=== PATIENT | male | born 1980 | race American Indian/Alaskan Native ===

== ENCOUNTER 2020-12-02 19:41 | Emergency (ER) | payer BC ==
[2020-12-02] MEDS ORDERED: hydrALAZINE 25 MG TAB PO ONE (20:27)
[2020-12-02] MEDS ORDERED: BUTALB/ACETAMINOPHEN/CAFFEINE TAB PO ONE (20:27)
--- NOTE | 2020-12-02 20:34 | Emergency Department Report ---
ED General Adult HPI - General Stated complaint: BLOOD PRESSURE HIGH PUI?: No Source: patient Mode of arrival: Ambulatory Limitations: No Limitations - History of Present Illness Initial comments: Patient is a 40-year-old -[place] male with a history of obesity, who presents to the ED with complaint of acute onset persistent headache, intermittent lightheadedness and elevated blood pressure for the last 2 days. Patient states that he has never been diagnosed with hypertension but when he started having the symptoms his sister advised him to check his blood pressure which was significantly high. Patient states that his blood pressure was over 200 systolic. Patient denies chest pain, shortness of breath, dizziness, syncope, palpitations, numbness and tingling or weakness of upper extremities bilaterally, diaphoresis, nausea and vomiting, cough, abdominal pain, neck pain, facial numbness and tingling, change in vision, change in speech, loss of consciousness or upper and lower extremity weakness. MD Complaint: elevated blood pressure; lightheadedness and headache -: Sudden, days(s) (2) Location: head Radiation: non-radiation Severity scale (0 -10): 7 Quality: aching, sharp Consistency: constant Improves with: none Worsens with: none Associated Symptoms: denies other symptoms, headaches, malaise. denies: confusion, chest pain, cough, diaphoresis, fever/chills, loss of appetite, nausea/vomiting, rash, seizure, shortness of breath, syncope, weakness, other Treatments Prior to Arrival: none - Related Data Previous Rx's Medication Instructions Recorded Last Taken Type Ibuprofen [Motrin] 800 mg PO Q8HR PRN #30 tablet 12/02/20 Unknown Rx Lisinopril/Hydrochlorothiazide 1 tab PO QDAY #30 tab 12/02/20 Unknown Rx [Zestoretic 20-25 mg] Allergies Allergy/AdvReac Type Severity Reaction Status Date / Time No Known Allergies Allergy Unverified 12/02/20 20:30 ED Review of Systems ROS: Stated complaint: BLOOD PRESSURE HIGH Other details as noted in HPI Constitutional: other (Elevated blood pressure). denies: chills, fever Eyes: denies: eye pain, eye discharge, vision change ENT: denies: ear pain, throat pain Respiratory: denies: cough, shortness of breath, wheezing Cardiovascular: denies: chest pain, palpitations Endocrine: no symptoms reported Gastrointestinal: denies: abdominal pain, nausea, vomiting, diarrhea Genitourinary: denies: urgency, dysuria Musculoskeletal: denies: back pain, joint swelling, arthralgia Skin: denies: rash, lesions Neurological: headache, other (lightheadedness). denies: weakness, paresthesias Psychiatric: denies: anxiety, depression Hematological/Lymphatic: denies: easy bleeding, easy bruising ED Past Medical Hx - Medications Home Medications: Home Medications Medication Instructions Recorded Confirmed Last Taken Type Ibuprofen [Motrin] 800 mg PO Q8HR PRN #30 tablet 12/02/20 Unknown Rx Lisinopril/Hydrochlorothiazide 1 tab PO QDAY #30 tab 12/02/20 Unknown Rx [Zestoretic 20-25 mg] ED Physical Exam - General General appearance: alert, in no apparent distress - Head Head exam: Present: atraumatic, normocephalic, normal inspection - Eye Eye exam: Present: normal appearance, PERRL, EOMI Pupils: Present: normal accommodation - ENT ENT exam: Present: normal exam, normal orophraynx, mucous membranes moist, TM's normal bilaterally, normal external ear exam - Neck Neck exam: Present: normal inspection, full ROM - Respiratory Respiratory exam: Present: normal lung sounds bilaterally. Absent: respiratory distress, wheezes, rales, rhonchi, stridor, chest wall tenderness, decreased breath sounds, prolonged expiratory - Cardiovascular Cardiovascular Exam: Present: regular rate, normal rhythm, normal heart sounds. Absent: systolic murmur, diastolic murmur, rubs, gallop - GI/Abdominal GI/Abdominal exam: Present: soft, normal bowel sounds. Absent: distended, tenderness, guarding, hyperactive bowel sounds, hypoactive bowel sounds, organomegaly - Extremities Exam Extremities exam: Present: normal inspection, full ROM, normal capillary refill - Back Exam Back exam: Present: normal inspection, full ROM. Absent: tenderness, CVA tender ness (R), CVA tenderness (L), muscle spasm, paraspinal tenderness, vertebral tenderness - Neurological Exam Neurological exam: Present: alert, oriented X3, CN II-XII intact, normal gait, reflexes normal - Psychiatric Psychiatric exam: Present: normal affect, normal mood - Skin Skin exam: Present: warm, dry, intact, normal color. Absent: rash ED Course Vital Signs 12/02/20 12/02/2021 20:16 21:15 21:16 Temperature 99.1 F Pulse Rate 77 77 Respiratory 18 20 Rate Blood Pressure 194/122 194/122 Blood Pressure [Right] O2 Sat by Pulse 95 Oximetry 12/02/20 22:55 Temperature Pulse Rate 76 Respiratory 16 Rate Blood Pressure Blood Pressure 167/102 [Right] O2 Sat by Pulse 97 Oximetry ED Medical Decision Making - Lab Data Result diagrams: 12/02/20 20:52 12/02/20 20:52 - Radiology Data Radiology results: report reviewed, image reviewed Findings [facility] [address] [place] [address] XRay Report Signed Patient: BOY TAY MR#: [id number] : 1980 Acct:[id number] Age/Sex: 40 / M ADM Date: 12/02/20 Loc: ED Attending Dr: Ordering Physician: PRECIOUS MORGAN Date of Service: 12/02/20 Procedure(s): XR chest 1V ap Accession Number(s): [id number] cc: PRECIOUS MORGAN Fluoro Time In Minutes: CHEST 1 VIEW 12/02/2020 8:48 PM INDICATION / CLINICAL INFORMATION: Lightheadedness, elevated BP. COMPARISON: None available. FINDINGS: SUPPORT DEVICES: None. HEART / MEDIASTINUM: No significant abnormality. LUNGS / PLEURA: No significant pulmonary or pleural abnormality. No pneumothorax. ADDITIONAL FINDINGS: No significant additional findings. IMPRESSION: No acute cardiopulmonary abnormality. Signer Name: Karolyn Vinson MD Signed: 12/02/2020 8:59 PM Workstation Name: [id number] Transcribed By: SS Dictated By: KAROLYN VINSON Electronically Authenticated By: KAROLYN VINSON Signed Date/Time: 12/02/202058 DD/ 58 TD/TT: Findings [facility] [address] [place] [address] Cat Scan Report Signed Patient: BOY TAY MR#: [id number] : 1980 Acct:[id number] Age/Sex: 40 / M ADM Date: 12/02/20 Loc: ED Attending Dr: Ordering Physician: PRECIOUS MORGAN Date of Service: 12/02/20 Procedure(s): CT head/brain wo con Accession Number(s): [id number] cc: PRECIOUS MORGAN CT HEAD WITHOUT CONTRAST INDICATION / CLINICAL INFORMATION: Headache, elevated BP. TECHNIQUE: All CT scans at this location are performed using CT dose reduction for ALARA by means of automated exposure control. COMPARISON: None available. FINDINGS: HEMORRHAGE: None. EXTRA-AXIAL SPACES: Normal in size and morphology for the patient's age. VENTRICULAR SYSTEM: Normal in size and morphology for the patient's age. 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 No acute territorial infarct. MIDLINE SHIFT OR HERNIATION: None. CEREBELLUM / BRAINSTEM: No significant abnormality. ORBITS: Normal as visualized. SOFT TISSUES of HEAD: No significant abnormality. CALVARIUM: No significant abnormality. PARANASAL SINUSES / MASTOID AIR CELLS: Normal as visualized. ADDITIONAL FINDINGS: None. IMPRESSION: 1. No acute intracranial abnormality. Signer Name: Karolyn Vinson MD Signed: 12/02/2020 9:16 PM Workstation Name: [id number] Transcribed By: SS Dictated By: KAROLYN VINSON Electronically Authenticated By: KAROLYN VINSON Signed Date/Time: 12/02/202115 DD/ 13 TD/TT: - Medical Decision Making This is a 40-year-old -[place] male with a history of obesity, who presents to the ED with complaint of acute onset persistent headache, intermittent lightheadedness and elevated blood pressure for the last 2 days. Patient states that he has never been diagnosed with hypertension but when he started having the symptoms his sister advised him to check his blood pressure which was significantly high. Patient states that his blood pressure was over 200 systolic. - Differential Diagnosis TENSION HEADACHE; ACS; SAH; Pneumonia; Migraine headache Critical care attestation.: If time is entered above; I have spent that time in minutes in the direct care of this critically ill patient, excluding procedure time. ED Disposition Clinical Impression: Uncontrolled stage 2 hypertension Acute tension headache Qualifiers: Intractability: not intractable Qualified Code(s): G44.209 - Tension-type headache, unspecified, not intractable Disposition: DC-01 TO HOME OR SELFCARE Is pt being admited?: No Does the pt Need Aspirin: No Condition: Stable Instructions: Hypertension (ED), Tension Headache, Adult, [id number], Hypertension, Adult, [id number] Additional Instructions: All lab test results were reviewed and are all nonactionable. Head CT scan without contrast showed no acute intracranial abnormalities or hemorrhage. Chest x-ray showed no acute cardiopulmonary abnormalities or pneumonitis. Therefore take medications with food, drink plenty of fluids and follow-up with your primary care physician in 3 to 5 days for reevaluation. Return to the ED immediately if your symptoms get worse. Prescriptions: Ibuprofen [Motrin] 800 mg PO Q8HR PRN #30 tablet PRN Reason: Pain , Severe (7-10) Lisinopril/Hydrochlorothiazide [Zestoretic 20-25 mg] 1 tab PO QDAY #30 tab Referrals: INDIA FAITH MD [Staff Physician] - 3-5 Days Time of Disposition: 23:23 Print Language: SPANISH
--- NOTE | 2020-12-02 21:03 | XRay Report ---
CHEST 1 VIEW 12/02/2020 8:48 PM INDICATION / CLINICAL INFORMATION: Lightheadedness, elevated BP. COMPARISON: None available. FINDINGS: SUPPORT DEVICES: None. HEART / MEDIASTINUM: No significant abnormality. LUNGS / PLEURA: No significant pulmonary or pleural abnormality. No pneumothorax. ADDITIONAL FINDINGS: No significant additional findings. IMPRESSION: No acute cardiopulmonary abnormality. Signer Name: Jackson Vinson MD Signed: 12/02/2020 8:59 PM Workstation Name: [id number]
--- NOTE | 2020-12-02 21:21 | Cat Scan Report ---
CT HEAD WITHOUT CONTRAST INDICATION / CLINICAL INFORMATION: Headache, elevated BP. TECHNIQUE: All CT scans at this location are performed using CT dose reduction for ALARA by means of automated e xposure control. COMPARISON: None available. FINDINGS: HEMORRHAGE: None. EXTRA-AXIAL SPACES: Normal in size and morphology for the patient's age. VENTRICULAR SYSTEM: Normal in size and morphology for the patient's age. 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 No acute territorial infarct. MIDLINE SHIFT OR HERNIATION: None. CEREBELLUM / BRAINSTEM: No significant abnormality. ORBITS: Normal as visualized. SOFT TISSUES of HEAD: No significant abnormality. CALVARIUM: No significant abnormality. PARANASAL SINUSES / MASTOID AIR CELLS: Normal as visualized. ADDITIONAL FINDINGS: None. IMPRESSION: 1. No acute intracranial abnormality. Signer Name: Jackson Vinson MD Signed: 12/02/2020 9:16 PM Workstation Name: [id number]
[2020-12-02 21:24] LABS: Basophils % (Auto) 0.5 % (0.0-1.8); Eosinophils # (Auto) 0.2 K/mm3 (0.0-0.4); Eosinophils % (Auto) 2.6 % (0.0-4.3); Hematocrit 41.4 % (35.5-45.6); Lymphocytes # (Auto) 3.5 K/mm3 (1.2-5.4); Lymphocytes % (Auto) 40.1 % (13.4-35.0); Mean Corpuscular HGB Conc 34 % (32-34); Mean Corpuscular Volume 86 fl (84-94); Monocytes # (Auto) 0.5 K/mm3 (0.0-0.8); Monocytes % (Auto) 5.5 % (0.0-7.3); Platelet Count 199 K/mm3 (140-440); Red Blood Count 4.82 M/mm3 (3.65-5.03); Red Cell Distribution Width 15.6 % (13.2-15.2)
[2020-12-02 21:47] LABS: Alanine Aminotransferase 15 units/L (7-56); BUN/Creatinine Ratio 9; Blood Urea Nitrogen 7 mg/dL (9-20); Calcium 8.8 mg/dL (8.4-10.2); Hemolysis Index 23
[2020-12-02 22:55] VITALS: BP 167/102
== END 2020-12-02 23:30 | disposition home or self-care (01) ==
LOC: ED 19:41
DX: G44.209 Tension-type headache, unspecified, not intractable (principal); I10 Essential (primary) hypertension; Z79.899 Other long term (current) drug therapy
CPT/HCPCS: 36415; 70450; 71045; 80053; 84484; 85025